=== PATIENT | female | born 1970 | race Caucasian/White ===

== ENCOUNTER 2019-01-06 17:19 | Emergency (ER) | payer OTHER ==
[~2019-01-06] VITALS: Ht 170.2 cm; Wt 91.0 kg
[~2019-01-06 17:19] MED LIST: AZEL205. NASAL; CETI5TAB4 PO; DOXY100C47 PO; IBUP-1541; RIZA10TA4
[2019-01-06 17:23] VITALS: Ht 170.2 cm; Wt 91.0 kg
--- NOTE | 2019-01-06 17:31 | ERD ---
ER Documentation Chief Complaint Chief Complaint see's floaters from right eye, headache this morning at 1130 this morning HPI The patient is a 48-year-old female, presenting to the ER because of vague headache that began 1130 this morning, complains of right eye floater that began around 5 PM. She denies having had a floater previously, denies eye pain, blurred vision, facial pain, neck pain, chest pain, dyspnea, abdominal pain, vomiting. She does not smoke nor drink, has increased stress in her life. Past medical history: Migraine, anxiety, fibromyalgia Past surgical history: Hysterectomy, cholecystectomy ROS All systems reviewed and are negative except as per history of present illness. Medications Home Meds Reported Medications Azelastine Hcl (Astepro) 205.5 Mcg/0.137 Ml [place].pump, 1 SPRAY NASAL DAILY 02/21/12 Doxycycline Hyclate (Doxycycline Hyclate) 100 Mg Capsule.dr, 100 MG PO BID 02/21/12 Cetirizine Hcl* (Zyrtec*) 5 Mg Tablet, PO DAILY 02/21/12 Rizatriptan Benzoate (Maxalt BACTERIOLOG[employer] TEACHER) 10 Mg/Tab Tab.rapdis 02/06/10 Ibuprofen* (Ibuprofen*) 400 Mg Tablet 02/06/10 Allergies Allergies: Coded Allergies: Acetaminophen (Verified Allergy, Mild, 02/06/10) Codeine (Verified Allergy, Mild, 02/06/10) Hydrocodone (Verified Allergy, Mild, 02/06/10) Sulfamethoxazole (Verified Allergy, Mild, RASH, 02/21/12) morphine (Verified Allergy, Mild, 02/06/10) topiramate (Verified Allergy, Mild, 02/06/10) trimethoprim (Verified Allergy, Mild, RASH, 02/21/12) Uncoded Allergies: [id number] (SULFA (SULFONAMIDE ANTIBIOTICS)) (Allergy, Mild, 02/06/10) PMhx/Soc History of Surgery: Yes (TOTAL HYSTRERECTOMY) Anesthesia Reaction: No Hx Neurological Disorder: No Hx Respiratory Disorders: No Hx Cardiac Disorders: No Hx Psychiatric Problems: No Hx Miscellaneous Medical Probl: Yes (MIGRAINES) Hx Alcohol Use: No Hx Substance Use: No Hx Tobacco Use: No Physical Exam Vitals Vital Signs Date Temp Pulse Resp B/P (MAP) Pulse Ox O2 O2 Flow FiO2 Time Delivery Rate 01/06/19 98.2 90 16 136/99 97 Room Air 19:32 (111) 01/06/19 103 17 132/100 100 Room Air 17:50 (111) 01/06/19 98.4 116 18 120/90 97 17:23 (100) Physical Exam Const: No acute distress. Head: Atraumatic. Eyes: Normal Conjunctiva. Non-erythematous conjunctiva, no nystagmus ENT: Normal External Ears, Nose and Mouth. Neck: Full range of motion. No meningismus. Resp: Clear to auscultation bilaterally. Cardio: Regular rate and rhythm. Abd: Soft, non distended, normal bowel sounds, non tender. Skin: No petechiae or rashes. Back: No midline or flank tenderness. Ext: No cyanosis, or edema. Neur: Awake and alert. No focal deficit Psych: Normal Mood and Affect. Result Diagram: 01/06/19 1753 01/06/19 1753 Results 24 hrs Laboratory Tests Test 01/06/19 17:53 White Blood Count 11.3 10^3/ul Red Blood Count 5.02 10^6/ul Hemoglobin 13.9 g/dl Hematocrit 43.2 % Mean Corpuscular Volume 86.1 fl Mean Corpuscular Hemoglobin 27.7 pg Mean Corpuscular Hemoglobin Concent 32.2 g/dl Red Cell Distribution Width 12.5 % Platelet Count 317 10^3/UL Mean Platelet Volume 10.7 fl Immature Granulocytes % 0.400 % Neutrophils % 63.7 % Lymphocytes % 24.5 % Monocytes % 5.0 % Eosinophils % 5.4 % Basophils % 1.0 % Nucleated Red Blood Cells % 0.0 /100WBC Immature Granulocytes # 0.040 10^3/ul Neutrophils # 7.2 10^3/ul Lymphocytes # 2.8 10^3/ul Monocytes # 0.6 10^3/ul Eosinophils # 0.6 10^3/ul Basophils # 0.1 10^3/ul Nucleated Red Blood Cells # 0.0 10^3/ul Sodium Level 138 mmol/L Potassium Level 3.7 mmol/L Chloride Level 103 mmol/L Carbon Dioxide Level 24 mmol/L Anion Gap 11 Blood Urea Nitrogen 15 mg/dl Creatinine 0.91 mg/dl Est Glomerular Filtrat Rate mL/min > 60 mL/min Glucose Level 140 mg/dl Calcium Level 9.5 mg/dl Procedures/[facility] [address] [address] Radiology Main Line: [phone] DIAGNOSTIC IMAGING REPORT Patient: MARLYS BAE : 1970 Age: 48 Sex: F MR #: [id number] DOS: 01/06/19 1736 Ordering MD: ALBARO CARDOZA MD Location: E/R Room/Bed: PROCEDURE: CT head CLINICAL INDICATION: Headaches TECHNIQUE: Contiguous 2.5 mm axial images were obtained from the vertex to the skull base. No intravenous contrast was administered. The calculated dose length product (DLP) = 634.23 mGy-cm. The CTDlvol = 39.64 mGy. One or more of the following dose reduction techniques were used: Automated exposure control, adjustment of the mA and or KV according to patient size, or use of iterative reconstruction technique. DICOM images are available. COMPARISON: None FINDINGS: There is no evidence of acute intracranial hemorrhage or acute territorial infarct. No mass or mass effect is seen on this noncontrast study. The ventricles and cisterns are normal in size and configuration. The lópez-white matter differentiation is within normal limits. The visualized paranasal sinuses are normally aerated. The bony calvarium is unremarkable IMPRESSION: Unremarkable unenhanced CT of the brain RPTAT: HH .Mark Phelps MD, MD Date Time Electronically viewed and signed by .Mark Phelps MD, on 01/06/2019 18:52 .W/ CC: ALBARO CARDOZA MD [phone] MEDICAL MAKING DECISION: The patient is a 48-year-old female, presenting with acute right eye floater of unclear etiology, no visual change, is stable for outpatient follow-up The differential diagnoses considered include but are not limited to partial retinal detachment, partial vitreous detachment, anxiety attack Departure Diagnosis: Primary Impression: Floaters Condition: Good Comments She has been given her multiple referral from local resource economist and the eye clinic The patient's blood pressure was elevated (>120/80) but appears stable without evidence of hypertension emergency or urgency. The patient was counseled about the risks of hypertension and urged to pursue outpatient monitoring and therapy within a week with their primary care physician. I discussed the findings with the patient. I advised the patient to follow-up with the oral resource economist or [facility] tomorrow and return if any concern Disclaimer: Inadvertent spelling and grammatical errors are likely due to EHR/dictation software use and do not reflect on the overall quality of patient care. Also, please note that the electronic time recorded on this note does not necessarily reflect the actual time of the patient encounter. ALBARO CARDOZA MD Jan 06, 2019 17:31
[2019-01-06 19:32] VITALS: BP 136/99; PULSE 90; RESP 16
== END 2019-01-06 20:27 | disposition home or self-care (01) ==
LOC: E/R 17:19
DX: H43.391 Other vitreous opacities, right eye (principal); R40.2142 Coma scale, eyes open, spontaneous, at arrival to emergency department; R40.2362 Coma scale, best motor response, obeys commands, at arrival to emergency department; R40.2252 Coma scale, best verbal response, oriented, at arrival to emergency department
CPT/HCPCS: 36415; 70450; 80048; 85025; Z7502